=== PATIENT | male | born 1970 | race African-American/Black ===

== ENCOUNTER 2018-12-15 10:30 | Emergency (ER) | payer OTHER ==
[~2018-12-15] VITALS: Ht 188 cm; Wt 102.1 kg
[2018-12-15] MEDS ORDERED: HYDROCODONE-AP1 EAC6 PO (11:36)
[2018-12-15 12:10] VITALS: BP 169/106
== END 2018-12-15 11:55 | disposition home or self-care (01) ==
LOC: ER 10:30
DX: S92.331A Displaced fracture of third metatarsal bone, right foot, initial encounter for closed fracture (principal); S92.351A Displaced fracture of fifth metatarsal bone, right foot, initial encounter for closed fracture; F17.210 Nicotine dependence, cigarettes, uncomplicated; W10.8XXA Fall (on) (from) other stairs and steps, initial encounter; Y93.89 Activity, other specified; Y92.89 Other specified places as the place of occurrence of the external cause; Y99.8 Other external cause status